=== PATIENT | male | born 1960 | race Two or more races ===

== ENCOUNTER 2022-01-09 22:27 | Emergency (ER) | payer OTHER ==
[~2022-01-09] VITALS: Ht 167.6 cm; Wt 101.6 kg
[2022-01-09] MEDS ORDERED: LORAZEPAM 0.5 MG TABLET ONE (22:39)
--- NOTE | 2022-01-09 22:40 | NUR ---
TO ER BED 2. BIB FAMILY FOR C/O R HAND LACERATION WITH SAW AROUND 4 PM. MULTIPLE LAC NOTED, OPEN TO AIR, ACTIVELY BLEEDING. PT IS ALERT AND ORIENTED . AMBULATORY WITH STEADY GAIT. RR EVEN AND NONLABORED. CONNECTED TO MONITOR. WOUND KEPT CLEAN. AWAITING MD QUIGLEY
--- NOTE | 2022-01-09 22:42 | NUR ---
WITNESSED WASTE MEDICATION OF 0.5MG ATIVAN WITH RICKY EDWARDS
--- NOTE | 2022-01-09 22:42 | NUR ---
ATIVAN PULLED UNDER WRONG PATIENT NAME. WASTED 0.5MG WITH WITNESS RN TUTU NEVILLE.
[2022-01-09] MEDS ORDERED: TDAP [DIPH/PERTUSSIS/TET] 0.5 ML VIAL IM ONE ×2 (23:00→23:23)
[2022-01-09] MEDS ORDERED: LIDOCAINE 1% INJ 50 ML MDV IJ ONE (23:06)
[2022-01-09] MEDS ORDERED: GELATIN SPONGE,ABSORBABLE 1 SPONGE SPONGE TP ONE (23:30)
--- NOTE | 2022-01-10 00:09 | NUR ---
R INDEX LACERATION WAS COVERED WITH GELATIN FOAM, DRY DRESSING AND SECURED WITH KERLIX GAUZE. NO BLEEDING NOTED. NO NEURO OR CIRCILUATORY IMPAIRMENT. FINGER SPLINT APPLIED. PT WAS SEEN BY DR JAQUEZ AND MEDICALLY STABLE FOR DISCHARGE. Patient discharged to home in stable condition. Written and verbal after care instructions given to the patient and the . Patient verbalizes understanding of instruction.
[2022-01-10 00:14] VITALS: BP 149/82
== END 2022-01-10 00:15 | disposition home or self-care (01) ==
LOC: ER 22:33 → EDBD 22:33 → ER 01-10 00:15
DX: S61.411A Laceration without foreign body of right hand, initial encounter (principal); W22.8XXA Striking against or struck by other objects, initial encounter; Y93.89 Activity, other specified; Y92.89 Other specified places as the place of occurrence of the external cause; Y99.8 Other external cause status
CPT/HCPCS: 99284; 12034; 90471; 90715; J3490; A6403 ×3

== ENCOUNTER 2022-01-11 23:45 | Emergency (ER) | payer OTHER ==
[~2022-01-11] VITALS: Ht 172.7 cm; Wt 108.9 kg
[2022-01-11 23:52] VITALS: BP 116/70
--- NOTE | 2022-01-12 00:08 | NUR ---
Patient discharged to home in stable condition. Written and verbal after care instructions given. Patient verbalizes understanding of instruction. Pt ambulatory with a steady gait
== END 2022-01-12 00:09 | disposition home or self-care (01) ==
LOC: ER 23:51
DX: S61.210D Laceration without foreign body of right index finger without damage to nail, subsequent encounter (principal); I10 Essential (primary) hypertension; E78.5 Hyperlipidemia, unspecified; E11.9 Type 2 diabetes mellitus without complications; I25.2 Old myocardial infarction; X58.XXXD Exposure to other specified factors, subsequent encounter